=== PATIENT | female | born 2000 ===

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

== ENCOUNTER 2024-04-07 14:46 | Emergency (ER) | payer OTHER ==
[~2024-04-07] VITALS: Ht 160 cm; Wt 79.4 kg
[2024-04-07 15:32] VITALS: BP 122/58
== END 2024-04-07 15:35 | disposition home or self-care (01) ==
LOC: ER 14:46
DX: U07.1 COVID-19 (principal); F17.200 Nicotine dependence, unspecified, uncomplicated
CPT/HCPCS: 99283

== ENCOUNTER → 2024-09-03 | Outpatient (CLI) | payer OTHER ==
[2024-09-05 14:00] LABS: APTIMA MEDIA TYPE Urine; C. TRACHOMATIS BY TMA Negative (Negative); N. GONORRHOEAE BY TMA Negative (Negative); SPECIMEN SOURCE Urine
== END ==
LOC: LAB SHORT 10:55 → LAB 10:55
PROVIDERS: Registered Nurse Community Health
DX: Z34.91 Encounter for supervision of normal pregnancy, unspecified, first trimester (principal)
CPT/HCPCS: 87491; 87591

== ENCOUNTER → 2025-01-05 | Outpatient (CLI) | payer OTHER ==
[2025-01-05 12:33] LABS: Hematocrit 34.9 % (33.0-51.0); Hemoglobin 12.5 g/dL (11.5-16.0)
== END | disposition home or self-care (01) ==
LOC: LAB SHORT 11:33 → LAB 11:33
PROVIDERS: Registered Nurse Community Health
DX: Z34.93 Encounter for supervision of normal pregnancy, unspecified, third trimester (principal)
CPT/HCPCS: 82950; 85014; 85018

== ENCOUNTER → 2025-02-24 | Outpatient (CLI) | payer OTHER | LOC: LAB 12:41 → LAB SHORT 12:41 | DX: Z34.03 Encounter for supervision of normal first pregnancy, third trimester (principal) | CPT/HCPCS: 87081; 87150 ==